=== PATIENT | female | born 1950 | race Caucasian/White ===

== ENCOUNTER → 2024-07-05 13:54 | Outpatient (CLI) | payer BC, SELFPAY ==
[2024-07-05 15:05] LABS: Add Manual Diff / Slide Review NO; Basophils Absolute Auto 0 /uL (0-100); Basophils Percent Auto 0.7 % (0-2); Eosinophils Absolute Auto 100 /uL (0-450); Hematocrit 38.9 % (36-46); Hemoglobin 13.2 g/dL (12.0-16.0); Lymphocytes Absolute Auto 1600 /uL (1100-4500); Lymphocytes Percent Auto 26.7 % (25-40); Mean Corpuscular Hemoglobin 30.9 PG (26-34); Mean Corpuscular Volume 91.1 fL (80-100); Monocytes Absolute Auto 500 /uL (0-900); Monocytes Percent Auto 7.8 % (3-14); Neutrophils Absolute Auto 3700 /uL (1500-7000); Neutrophils Percent Auto 62.8 % (50-75); Platelet Count 182 X10^3/uL (150-400); Red Blood Cell Count 4.27 X10^6/uL (4.0-5.2); Red Cell Distribution Width 13.2 % (11.6-14.8); White Blood Cell Count 5.8 X10^3/uL (4.5-11.0)
[2024-07-05 15:24] LABS: Alanine Aminotransferase 37 IU/L (<35); Albumin 4.4 g/dL (3.5-5.0); Albumin Globulin Ratio 1.9 (1.0-2.8); Alkaline Phosphatase 69 U/L (38-126); Aspartate Aminotransferase 35 IU/L (14-36); BUN Creatinine Ratio 17.7 (6-22); Blood Urea Nitrogen 14 mg/dL (7-17); Calcium 9.6 mg/dL (8.4-10.2); Carbon Dioxide 29 mmol/L (22-32); Chloride 107 mmol/L (98-107); Cholesterol 199 mg/dL (140-199); Estimated Glomerular Filt Rate > 60 mL/min (>60); Globulin 2.3 g/dL (1.7-4.1); Glucose 96 mg/dL (80-110); HDL Cholesterol 85 mg/dL (40-60); HEMOLYSIS < 15 (0-50); LDL Cholesterol Calculated 92 mg/dL (<100); Potassium 4.3 mmol/L (3.4-5.1); Sodium 141 mmol/L (137-145); Total Protein 6.7 g/dL (6.3-8.2); Triglycerides 111 mg/dL (35-150)
== END ==
PROVIDERS: PCP Family Medicine; Referring Provider Family Medicine; Visit Provider Family Medicine
DX: I35.8 Other nonrheumatic aortic valve disorders (principal); I10 Essential (primary) hypertension; E78.5 Hyperlipidemia, unspecified
CPT/HCPCS: 36415; 80053; 80061; 85025

== ENCOUNTER → 2024-09-01 06:58 | Outpatient (CLI) | payer BC, SELFPAY ==
--- NOTE | 2024-09-01 07:28 | DI.ECHO.S_ITS ---
[facility] : : [address] : : [place] : : [id number] : : Phone: [phone] Echocardiogram Report + + :Name: VERA ROLDAN Study Date: 09/01/2024 Height: 63 in : :[facility] ReadingLocation: Weight: 145 lb : : Gender: Female BSA: 1.7 m2 : :: 1950 Age: 74 yrs BP: 136/92 mmHg: :Reason For Study: AORTIC VALVE SCLEROSIS, HYPERTENSION : :Ordering Physician: KATIE, : :MANDA Olsen Performed By: Salma Mcmillan : :Referring: MANDA WILSON : + + Interpretation Summary Patient had a brief run of narrow complex tachycardia reaching 110bpm during the TTE. There is also evidence of a post-valsalva LVOT gradient of up to 4 m/s (64mmHg) in the setting of mild LVH. Normal biventricular size and function. LVEF is 65-70%. Moderate LA dilation. Mild valvular regurgitation. Other findings as below. No previous echo images are available for comparison. Outpatient cardiology referral can be considered for further evaluation of above findings. Procedure: A two-dimensional transthoracic echocardiogram with color flow and Doppler was performed. The study quality was technically adequate. There is no prior echocardiogram noted for this patient. Short tachycardic run reaching up to 109bpm image #5. Left Ventricle: The left ventricle is normal in size. There is mild concentric left ventricular hypertrophy. The ejection fraction is estimated to be 65-70%. Right Ventricle: The right ventricle is normal in size and function. Atria: The left atrium is moderately dilated. Right atrial size is normal. There is no Doppler evidence for an interatrial shunt. Mitral Valve: The mitral valve leaflets appear mildly thickened, but open well. There is mild mitral regurgitation. Aortic Valve: The aortic valve is trileaflet. There is mild aortic valve sclerosis. The aortic valve opens well. There is no aortic valve stenosis. There is mild aortic regurgitation. Tricuspid Valve: The tricuspid valve is normal in structure and function. There is trace tricuspid regurgitation. Pulmonic Valve: The pulmonic valve leaflets are thin and pliable; valve motion is normal. There is trace pulmonic regurgitation. Great Vessels: The aortic root is normal size. The dimensions of the ascending aorta are normal. The IVC is of normal diameter and collapses greater than 50% with a sniff. This suggests a low right atrial pressure of 3 mm Hg. Pericardium/ Pleura There is no pericardial effusion. There is no pleural effusion. MMode/2D Measurements & Calculations LVIDd: 4.8 cm LVOT diam: 2.0 cm LVIDs: 3.1 cm Ao root diam: 2.9 cm FS: 35.1 % asc Aorta Diam: 3.4 cm IVSd: 1.2 cm Ao Arch Diam (Prox Trans): 3.2 cm LVPWd: 0.92 cm LV hassan. diameter/BSA (cm/m^2): 2.9 LV sys. diameter/BSA (cm/m^2): 1.9 LA A2 area: 24.8 cm2 RA long axis: 4.6 cm LA A4 area: 22.9 cm2 RA area: 16.2 cm2 LA length (vol): 5.8 cm RA vol: 48.9 ml LA vol: 82.4 ml RA : 29.0 ml/m2 LA vol index: 48.8 ml/m2 IVC diam: 1.3 cm RVD1 (basal): 3.9 cm RVD2 (mid): 2.5 cm Doppler Measurements & Calculations Ao V2 max: 170.7 cm/sec LVOT Max Yash: 166.6 cm/sec Ao V2 mean: 131.6 cm/sec LV V1 max P.1 mmHg Ao max P.7 mmHg LV V1 VTI: 41.5 cm Ao mean P.4 mmHg FLORIAN(I,D): 3.2 cm2 Ao V2 VTI: 41.2 cm FLORIAN(V,D): 3.1 cm2 sev ratio: 1.0 FLORIAN indexed to BSA (cm^2/m^2): 1.9 MV E max yash: 59.2 cm/sec PA V2 max: 96.1 cm/sec MV A max yash: 42.9 cm/sec PA V2 mean: 69.8 cm/sec MV E/A: 1.4 PA mean P.1 mmHg Med Peak E' Yash: 4.7 cm/sec PA pr(Accel): 25.9 mmHg E/E' med: 12.5 Lat Peak E' Yash: 6.9 cm/sec E/E' lat: 8.6 E/e' average: 10.6 MV dec time: 0.25 sec SV(LVOT): 132.5 ml Reading Physician:MAKENZIE
== END ==
LOC: ECHO 06:58
PROVIDERS: PCP Family Medicine; Referring Provider Family Medicine; Visit Provider Family Medicine
DX: I08.0 Rheumatic disorders of both mitral and aortic valves (principal); I10 Essential (primary) hypertension
CPT/HCPCS: 93306

== ENCOUNTER → 2024-10-06 08:00 | Outpatient (CLI) | payer BC, SELFPAY | PROVIDERS: PCP Family Medicine; Referring Provider Family Medicine; Visit Provider Family Medicine | DX: R00.0 Tachycardia, unspecified (principal) | CPT/HCPCS: 93242; 93244 ==

== ENCOUNTER → 2024-10-20 11:04 | Outpatient (CLI) | payer BC, SELFPAY ==
[2024-10-20 12:39] LABS: Alanine Aminotransferase 31 IU/L (<35); Albumin 4.2 g/dL (3.5-5.0); Albumin Globulin Ratio 2.1 (1.0-2.8); Alkaline Phosphatase 57 U/L (38-126); Aspartate Aminotransferase 39 IU/L (14-36); BUN Creatinine Ratio 21.1 (6-22); Blood Urea Nitrogen 16 mg/dL (7-17); Calcium 9.3 mg/dL (8.4-10.2); Carbon Dioxide 28 mmol/L (22-32); Chloride 104 mmol/L (98-107); Estimated Glomerular Filt Rate > 60 mL/min (>60); Glucose 89 mg/dL (80-110); HEMOLYSIS 19 (0-50); Potassium 4.4 mmol/L (3.4-5.1); Sodium 137 mmol/L (137-145); Total Protein 6.2 g/dL (6.3-8.2)
== END ==
LOC: LAB 11:04
PROVIDERS: PCP Family Medicine; Referring Provider Family Medicine; Visit Provider Family Medicine
DX: R74.8 Abnormal levels of other serum enzymes (principal)
CPT/HCPCS: 36415; 80053

== ENCOUNTER → 2024-11-15 06:49 | Outpatient (CLI) | payer BC, SELFPAY ==
--- NOTE | 2024-11-15 06:50 | DI.US.S_ITS ---
PROCEDURE: US ABDOMEN LIMITED INDICATIONS: elevated liver enzymes TECHNIQUE: Real-time focused scanning was performed of the abdomen, with image documentation. COMPARISON: None. FINDINGS: The liver is normal size measuring 14.1 cm. Smooth margin. Normal echotexture. Appropriate direction of flow in the main portal vein. No intra or extrahepatic biliary dilatation. The gallbladder is normal without stones, sludge, wall thickening, or pericholecystic fluid. The visible portion of the pancreas and right kidney appear normal. No free fluid in the right upper quadrant. IMPRESSION: Normal right upper quadrant ultrasound. Dictated by: Brunilda Ogden M.D. on 11/15/2024 at 12:43 Approved by: Brunilda Ogden M.D. on 11/15/2024 at 12:45
== END ==
PROVIDERS: PCP Family Medicine; Referring Provider Family Medicine; Visit Provider Family Medicine
DX: R74.8 Abnormal levels of other serum enzymes (principal)
CPT/HCPCS: 76700

== ENCOUNTER 2025-01-08 09:20 | Emergency (ER) | payer BC, SELFPAY ==
[2025-01-08] VITALS (10 sets, daily range): BP systolic 152–204; BP diastolic 69–91; PULSE 50–66; RESP 14–24; TEMP 36.6; O2SAT 95–100; BMI 25.7
--- NOTE | 2025-01-08 09:28 | EKG_ITS ---
[facility] [address] [place] [address] Test Date: 2025-01-08 Pat Name: Krissy Menard Department: [facility] Room: Gender: Female Rn Provider Relations: SANTOSH : 1950 Requested By: Order Number: [id number] Reading MD: Robb Diaz MD Measurements Intervals [place] Rate: 56 P: 48 [place]: 182 QRS: 0 QRSD: 100 T: 36 QT: 454 QTc: 438 Interpretive Statements Sinus bradycardia with premature supraventricular complexes Minimal voltage criteria for LVH, may be normal variant ( Roderick product ) Nonspecific ST abnormality Electronically Signed On 01-08-2025 12:43:36 PST by Robb Diaz MD
--- NOTE | 2025-01-08 09:28 | DI.RAD.S_ITS ---
PROCEDURE: XR CHEST 1V INDICATIONS: chest pain TECHNIQUE: One view of the chest was acquired. COMPARISON: None. FINDINGS: Surgical changes and devices: None. Lungs and pleura: Lungs are clear. No pleural effusions or pneumothorax. Mediastinum: Mediastinal contours appear normal. Heart size is at the upper limits of normal for portable technique. Bones and chest wall: Age-appropriate bony degenerative changes are seen. No suspicious bony lesions. Overlying soft tissues appear unremarkable. IMPRESSION: Clear lungs. Heart size at the upper limits of normal Dictated by: Perez Delvalle M.D. on 01/08/2025 at 8:51 Approved by: Perez Delvalle M.D. on 01/08/2025 at 8:52
[2025-01-08 09:39] LABS: Add Manual Diff / Slide Review NO; Basophils Absolute Auto 0 /uL (0-100); Basophils Percent Auto 0.4 % (0-2); Eosinophils Absolute Auto 100 /uL (0-450); Eosinophils Percent Auto 1.5 % (2-4); Hematocrit 39.7 % (36-46); Hemoglobin 13.2 g/dL (12.0-16.0); Lymphocytes Absolute Auto 1100 /uL (1100-4500); Lymphocytes Percent Auto 18.2 % (25-40); Mean Corpuscular HGB Conc 33.2 % (30-36); Mean Corpuscular Hemoglobin 30.3 PG (26-34); Mean Corpuscular Volume 91.4 fL (80-100); Monocytes Absolute Auto 400 /uL (0-900); Monocytes Percent Auto 6.7 % (3-14); Neutrophils Absolute Auto 4600 /uL (1500-7000); Neutrophils Percent Auto 73.2 % (50-75); Platelet Count 214 X10^3/uL (150-400); Red Blood Cell Count 4.35 X10^6/uL (4.0-5.2); Red Cell Distribution Width 13.1 % (11.6-14.8); White Blood Cell Count 6.3 X10^3/uL (4.5-11.0)
[2025-01-08 09:45] LABS: INR 1.1 (0.9-1.3); Prothrombin Time 11.9 SECONDS (9.4-12.5)
[2025-01-08 09:48] LABS: PTT Partial Thromboplastin Tim 35 SECONDS (25.1-36.5)
--- NOTE | 2025-01-08 09:50 | ED_ITS ---
HPI - Neuro Symptoms/Deficit General Chief Complaint: Neuro Symptoms/Deficit Stated Complaint: tingling/numbness in arms/legs, palpitations Time Seen by Provider: 01/08/25 09:50 Source: patient Mode of arrival: Ambulatory History of Present Illness HPI Narrative: Patient is a 74-year-old female history of hypertension hyperlipidemia presenting today with numbness and tingling in all of her extremities. She was stopped on her losartan recently and started on Cartia XR 120 12/02/2024. She started having some tingling in all her extremities she thought it might be due to the new medication. She stopped the Cartia 2 days ago. She thought her symptoms were improving with the again this morning they resumed. She denies any facial droop difficulty speaking no actual weakness. Feels equal numbness tingling in all of her extremities. No headache. She is noted to be quite hypertensive. On Anticoagulants: No Related Data Home Medications Medication Instructions Recorded Confirmed cholecalciferol (vitamin D3) 50 50 mcg PO DAILY 01/08/24 07/05/24 mcg (2,000 unit) capsule coQ10 (ubiquinol) 200 mg capsule 200 mg PO DAILY 01/08/24 07/05/24 (CoQmax Ubiquinol) Previous Rx's Medication Instructions Recorded rosuvastatin 40 mg tablet 40 mg PO DAILY #90 tabs 01/08/24 losartan 25 mg tablet 25 mg PO DAILY #90 tabs 11/09/24 Allergies Allergy/AdvReac Type Severity Reaction Status Date / Time No Known Drug Allergies Allergy Verified 01/08/25 09:28 Review of Systems Hematologic/Lymphatic On Anticoagulants: No Patient History Medical History Hearing loss Fibroids Aortic valve sclerosis Hypertension Hyperlipidemia Social History marital status: housing: house 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 RESPIRATORY: Breath sounds equal bilaterally, no wheezes rales or rhonchi. ABDOMEN: Soft, nontender. Normoactive bowel sounds all 4 quadrants. No guarding or rebound. EXTREMITIES: Normal range of motion, no clubbing or edema. Neurovascularly intact NEUROLOGICAL: Alert and oriented x4.Normal gait and speech. Cranial nerves II through XII grossly intact. Good [id number], good vmph-[id number], strength equal bilaterally, no dysarthria or aphasia, sensation in tact to soft touch bilaterally, no visual changes, no facial droop SKIN: Warm, dry, no laceration, no petechiae, no rashes or lesions. Scores NIH Stroke Scale Level of Conciousness: Alert, keenly responsive Ask month/age: Answers both questions correctly. Open/close eyes, close hand: Performs both tasks correctly Best gaze horizontal: Normal Visual harmon: No visual loss Facial palsy: Normal symetrical movement Left arm drift: No drift for full 10 sec Right arm drift: No drift for full 10 sec Left leg drift: No drift for full 5 sec Right leg drift: No drift for full 5 sec Limb ataxia: Absent Sensory on face/arms/legs: Normal, no sensory loss Best language: No aphasia, normal Dysarthria: Normal Extinction or inattention: No abnormality Total NIH Stroke scale score: 0 Course Orders Ordered: ED Orders 01/08/25 09:28 XR chest 1V Stat EKG-12 Lead Stat 01/08/25 09:30 Complete Blood Count AUTO DIFF Stat Comprehensive Metabolic Panel Stat Lipase Stat Magnesium Stat NT-proBNP (BNP-Adult 18+) Stat PTT Partial Thromboplastin Latrell Stat Prothrombin Time INR Stat Troponin & CK Cardiac Panel Stat Discontinued Medications Aspirin (Aspirin 81 Mg Chew Tab) 324 mg PO NOW ONE Stop: 01/08/25 09:28 Last Admin: 01/08/25 10:14 Dose: Not Given Documented By: CTS Vital Signs Vital signs: Vital Signs - 8 hr 01/08/25 09:24 01/08/25 09:26 01/08/25 09:27 Temperature 97.8 F Pulse Rate 57 L 60 62 Respiratory Rate 14 Blood Pressure 204/91 H Pulse Oximetry 96 98 98 Oxygen Delivery Method Room Air 01/08/25 09:27 01/08/25 09:30 01/08/25 10:00 Temperature Pulse Rate 66 51 L Respiratory Rate 24 17 Blood Pressure 204/91 H Pulse Oximetry 100 98 Oxygen Delivery Method 01/08/25 10:30 01/08/25 11:00 01/08/25 11:01 Temperature Pulse Rate 52 L 50 L 50 L Respiratory Rate 17 22 Blood Pressure Pulse Oximetry 95 97 96 Oxygen Delivery Method 01/08/25 11:01 01/08/25 11:30 01/08/25 11:31 Temperature Pulse Rate 50 L 54 L Respiratory Rate 17 Blood Pressure 152/71 H Pulse Oximetry 96 97 Oxygen Delivery Method 01/08/25 11:31 Temperature Pulse Rate Respiratory Rate Blood Pressure 161/69 H Pulse Oximetry Oxygen Delivery Method MDM - Neuro Symptoms/Deficit Lab Data 01/08/25 09:30 01/08/25 09:30 Labs: Lab Results 01/08/25 Range/Units 09:30 WBC 6.3 (4.5-11.0) X10^3/uL RBC 4.35 (4.0-5.2) X10^6/uL Hgb 13.2 (12.0-16.0) g/dL Hct 39.7 (36-46) % MCV 91.4 (80-100) fL MCH 30.3 (26-34) PG MCHC 33.2 (30-36) % RDW 13.1 (11.6-14.8) % Plt Count 214 (150-400) X10^3/uL Neut % (Auto) 73.2 (50-75) % Lymph % (Auto) 18.2 L (25-40) % [place] % (Auto) 6.7 (3-14) % Eos % (Auto) 1.5 L (2-4) % Baso % (Auto) 0.4 (0-2) % Neut # (Auto) 4600 (5946-7388) /uL Lymph # (Auto) 1100 (5047-6458) /uL [place] # (Auto) 400 (0-900) /uL Eos # (Auto) 100 (0-450) /uL Baso # (Auto) 0 (0-100) /uL PT 11.9 (9.4-12.5) SECONDS INR 1.1 (0.9-1.3) APTT 35 (25.1-36.5) SECONDS Sodium 139 (137-145) mmol/L Potassium 4.0 (3.4-5.1) mmol/L Chloride 104 (98-107) mmol/L Carbon Dioxide 29 (22-32) mmol/L BUN 15 (7-17) mg/dL Creatinine 0.85 (0.52-1.04) mg/dL Estimated GFR > 60 (>60) mL/min BUN/Creatinine Ratio 17.6 (6-22) Glucose 166 H (80-110) mg/dL Calcium 9.6 (8.4-10.2) mg/dL Magnesium 2.0 (1.6-2.3) mg/dL Total Bilirubin 0.8 (0.2-1.3) mg/dL AST 33 (14-36) IU/L ALT 31 (<35) IU/L Alkaline Phosphatase 59 (38-126) U/L Total Creatine Kinase 67 (30-135) U/L Troponin I < 0.012 (0.01-0.034) ng/mL NT-Pro-B Natriuret Pep 610 H (<125) pg/mL Total Protein 7.3 (6.3-8.2) g/dL Albumin 4.8 (3.5-5.0) g/dL Globulin 2.5 (1.7-4.1) g/dL Albumin/Globulin Ratio 1.9 (1.0-2.8) Lipase 117 (23-300) U/L Imaging Data Chest x-ray: Radiologist's Impression: PROCEDURE: XR CHEST 1V INDICATIONS: chest pain TECHNIQUE: One view of the chest was acquired. COMPARISON: None. FINDINGS: Surgical changes and devices: None. Lungs and pleura: Lungs are clear. No pleural effusions or pneumothorax. Mediastinum: Mediastinal contours appear normal. Heart size is at the upper limits of normal for portable technique. Bones and chest wall: Age-appropriate bony degenerative changes are seen. No suspicious bony lesions. Overlying soft tissues appear unremarkable. IMPRESSION: Clear lungs. Heart size at the upper limits of normal Dictated by: Perez Delvalle M.D. on 01/08/2025 at 8:51 Approved by: Perez Delvalle M.D. on 01/08/2025 at 8:52 ECG Data Attestation: I personally reviewed and interpreted this ECG as follows: Prior ECG tracings: available for review Interpretation: Sinus rhythm rate 56 IA interval 182 QRS 100 QTC 438 there appear to be PVC noted she does have some Compazine story pauses but no AV debora block appreciated Repeat EKGs again shows a sinus rhythm rate 54 with PVC noted no AV debora blocks MDM Narrative Medical decision making narrative: MDM CC: Numbness tingling all extremities Complicating co-morbidities: Hypertension hyperlipidemia Medical records reviewed: Last PCP note from June notes that patient has hypertension hyperlipidemia aortic sclerosis Differential considered: Stroke unlikely with numbness and tingling in all extremities she has no weakness, peripheral neuropathy, medication side effect Exam documented above, pertinent findings include: Patient awake alert 74-year-old female NIH stroke scale 0 Lab Test results independently reviewed as above. Pertinent findings: [ ] Independently reviewed EKG as above Sinus rhythm with PAC no AV debora block no ischemia Imaging studies independently reviewed: Chest x-ray no acute cardiopulmonary process Treatments: None Re-evaluations: Patient's blood pressure has come down without any sort of intervention. Blood pressure has a systolic in the 150s. Heart rate remains high 40s to 50s she has PACs are do not think she has an AV debora block she has certainly not in a third-degree heart block. She was completely asymptomatic. Patient reports that she has heart rate normally in the 50s. Discussion: Patient is a 74-year-old female who presents today with numbness tingling in all extremities ongoing for a couple of days. Recently started new calcium channel eduardo medication. This is not listed as 1 of the side effects but still possible. No concern for CVA today she has no weakness or unilateral deficits all symptoms are bilaterally. She was NIH of 0. Blood work is overall reassuring no electrolyte abnormality. At this time no concern for high-degree AV debora block does appear that she has PVCs, with compensatory pauses. Recommend outpatient follow-up with Cardiology. Patient has already called her provider who follow up with her next week Discharge Plan Departure Patient Disposition: Home Clinical Impression: Hypertension, Bradycardia Instructions: Essential Hypertension Activity Restrictions/Additional Instructions: *You have been diagnosed with hypertension *What to do: At this time unsure what all the tingling and numbness is from. I think unlikely stroke. Maybe related to your medication. 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
[2025-01-08 09:51] LABS: Alanine Aminotransferase 31 IU/L (<35); Albumin 4.8 g/dL (3.5-5.0); Albumin Globulin Ratio 1.9 (1.0-2.8); Alkaline Phosphatase 59 U/L (38-126); Aspartate Aminotransferase 33 IU/L (14-36); BUN Creatinine Ratio 17.6 (6-22); Bilirubin Total 0.8 mg/dL (0.2-1.3); Blood Urea Nitrogen 15 mg/dL (7-17); Calcium 9.6 mg/dL (8.4-10.2); Carbon Dioxide 29 mmol/L (22-32); Chloride 104 mmol/L (98-107); Creatine Kinase 67 U/L (30-135); Estimated Glomerular Filt Rate > 60 mL/min (>60); Globulin 2.5 g/dL (1.7-4.1); Glucose 166 mg/dL (80-110); HEMOLYSIS < 15 (0-50); Lipase 117 U/L (23-300); Sodium 139 mmol/L (137-145); Total Protein 7.3 g/dL (6.3-8.2)
[2025-01-08 10:02] LABS: NT-proBNP (BNP-Adult 18+) 610 pg/mL (<125); Troponin I < 0.012 ng/mL (0.01-0.034)
--- NOTE | 2025-01-08 10:02 | EKG_ITS ---
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
== END 2025-01-08 11:42 | disposition home or self-care (01) ==
PROVIDERS: Emergency Provider Emergency Medicine; PCP Family Medicine
DX: I10 Essential (primary) hypertension (principal); R00.1 Bradycardia, unspecified; R07.9 Chest pain, unspecified
CPT/HCPCS: 36415; 71045; 80053; 82550; 83690; 83735; 83880; 84484; 85025; 85610; 85730; 93005; 93010; 99284

== ENCOUNTER → 2025-02-11 12:57 | Outpatient (CLI) | payer BC, SELFPAY ==
[2025-02-11 14:54] LABS: BUN Creatinine Ratio 16.5 (6-22); Blood Urea Nitrogen 15 mg/dL (7-17); Calcium 9.6 mg/dL (8.4-10.2); Carbon Dioxide 29 mmol/L (22-32); Chloride 105 mmol/L (98-107); Estimated Glomerular Filt Rate > 60 mL/min (>60); Glucose 127 mg/dL (80-110); HEMOLYSIS < 15 (0-50); Potassium 4.3 mmol/L (3.4-5.1); Sodium 140 mmol/L (137-145)
== END ==
LOC: LAB 12:59
PROVIDERS: PCP Family Medicine; Referring Provider Internal Medicine Cardiovascular Disease; Visit Provider Internal Medicine Cardiovascular Disease
DX: I10 Essential (primary) hypertension (principal)
CPT/HCPCS: 36415; 80048